=== PATIENT | male | born 2000 | race Caucasian/White ===

== ENCOUNTER 2024-04-20 11:49 | Emergency (ER) | payer OTHER ==
[~2024-04-20] VITALS: Ht 172.7 cm; Wt 100.0 kg
[2024-04-20 11:51] VITALS: O2SAT 100
[2024-04-20 12:54] LABS: BASOPHILS % 0.3 % (0.0-2.0); EOSINOPHILS % 0.1 % (0.0-5.0); HEMATOCRIT. 43.1 % (42.0-52.0); HEMOGLOBIN. 14.3 g/dL (14.0-18.0); LYMPHOCYTES % 13.6 % (20.0-50.0); MEAN CORPUSCULAR HEMOGLOBIN 29.7 pg (28.0-32.0); MEAN CORPUSCULAR HGB CONC 33.2 g/dL (31.0-37.0); MEAN CORPUSCULAR VOLUME 89.7 fL (80.0-94.0); MEAN PLATELET VOLUME 8.2 fl (7.4-10.4); MONOCYTES % 5.1 % (2.0-8.0); NEUTROPHILS % 80.9 % (40.0-76.0); PLATELET 325 x1000/uL (130-400); RED BLOOD CELL COUNT 4.81 mill/uL (4.7-6.1); RED CELL DISTRIBUTION WIDTH 13.4 % (11.6-14.6); WHITE BLOOD COUNT 9.8 x1000/uL (4.5-11.0)
[2024-04-20 13:00] LABS: CHLORIDE 107 mEq/L (98-107); SODIUM 139 mEq/L (136-145)
[2024-04-20 13:01] LABS: CARBON DIOXIDE 25 mEq/L (21-32)
[2024-04-20 13:02] LABS: CALCIUM 10.1 mg/dL (8.7-10.4)
[2024-04-20 13:06] LABS: CREATININE 0.8 mg/dL (0.6-1.3); GLUCOSE 122 mg/dL (70-105)
[2024-04-20 13:07] LABS: TROPONIN I HIGH SENSITIVITY 6 ng/L (3.0-53); UREA NITROGEN BLOOD 13 mg/dL (9-23)
[2024-04-20] MEDS: IBUPROFEN 600MG TABLET PO ONE (13:45)
[2024-04-20 15:19] LABS: TROPONIN I HIGH SENSITIVITY 7 ng/L (3.0-53)
[2024-04-20 15:41] VITALS: BP 153/80; PULSE 90; RESP 18; TEMP 37.05852; O2SAT 100
== END 2024-04-20 15:44 ==
LOC: ER 11:49
DX: R07.89 Other chest pain (principal); I10 Essential (primary) hypertension
CPT/HCPCS: 36415; 71045; 80048; 84484; 85025; 99284